=== PATIENT | female | born 1945 | race Caucasian/White ===

== ENCOUNTER 2023-07-12 22:31 | Emergency (ER) | payer MEDICARE ==
[~2023-07-12] VITALS: Ht 160 cm; Wt 59.0 kg
[2023-07-12 22:18] VITALS: O2SAT 99
[2023-07-12] MEDS: LIDOCAINE HCL/EPINEPHRINE 1%-EPI 1:100,000 20 ML VIAL INFIL ONE (23:15)
[2023-07-12] MEDS: ACETAMINOPHEN 325MG TABLET PO ONE (23:29)
[2023-07-13] MEDS: TETANUS, DIPHTHERIA, PERTUSSIS VAC/PF 0.5ML (>10YR OLD) IM ONE (00:32)
[2023-07-13 01:10] VITALS: BP 146/63; PULSE 64; RESP 18; TEMP 98.4
== END 2023-07-13 01:10 | disposition home or self-care (01) ==
LOC: ER 22:31
DX: S01.01XA Laceration without foreign body of scalp, initial encounter (principal); E11.9 Type 2 diabetes mellitus without complications; I10 Essential (primary) hypertension; W18.39XA Other fall on same level, initial encounter; Y93.89 Activity, other specified; Y92.89 Other specified places as the place of occurrence of the external cause; Y99.8 Other external cause status
CPT/HCPCS: 99285; 70450; 12002; 90715; J3490; 90471; Z7502